=== PATIENT | male | born 1960 | race Caucasian/White ===

== ENCOUNTER 2020-02-06 05:38 | Emergency (ER) | payer OTHER ==
[~2020-02-06] VITALS: Ht 177.8 cm; Wt 82.0 kg
[2020-02-06] MEDS ORDERED: ACETAMINOPHEN 325MG TABLET PO ONE (06:30)
[2020-02-06] MEDS ORDERED: ASPIRIN 81MG TABLET PO ONE (06:30)
[2020-02-06 06:33] LABS: BASOPHILS % 0.6 % (0.0-2.0); EOSINOPHILS % 0.2 % (0.0-5.0); HEMATOCRIT. 43.9 % (42.0-52.0); HEMOGLOBIN. 14.9 g/dL (14.0-18.0); LYMPHOCYTES % 16.5 % (20.0-50.0); MEAN CORPUSCULAR HEMOGLOBIN 28.7 pg (28.0-32.0); MEAN CORPUSCULAR VOLUME 84.7 fL (80.0-94.0); MEAN PLATELET VOLUME 8.9 fl (7.4-10.4); MONOCYTES % 6.3 % (2.0-8.0); NEUTROPHILS % 76.4 % (40.0-76.0); PLATELET 219 x1000/uL (130-400); RED BLOOD CELL COUNT 5.18 mill/uL (4.7-6.1); RED CELL DISTRIBUTION WIDTH 20.1 % (11.6-14.6)
[2020-02-06 06:35] LABS: CHLORIDE 101 mEq/L (98-107)
[2020-02-06] MEDS ORDERED: KETOROLAC 15MG/ML VIAL IV ONE (09:30)
[2020-02-06] MEDS ORDERED: ONDANSETRON HCL 4MG/2ML INJ IV ONE (10:00)
[2020-02-06 15:57] LABS: *AMPHETAMINES SCREEN URINE PRESUMTIVE POSITIVE (NEGATIVE); *BARBITURATES SCREEN URINE NEGATIVE (NEGATIVE); *BENZODIAZEPINES SCREEN URINE NEGATIVE (NEGATIVE)
[2020-02-06 15:58] LABS: *COCAINE SCREEN URINE NEGATIVE (NEGATIVE); CANNABINOID URINE SCREEN NEGATIVE (NEGATIVE); METHADONE URINE SCREEN NEGATIVE (NEGATIVE); OPIATES URINE SCREEN NEGATIVE (NEGATIVE); PHENCYCLIDINE URINE SCREEN NEGATIVE (NEGATIVE)
[2020-02-06] MEDS ORDERED: CLONIDINE 0.2MG TABLET PO ONE (20:30)
[2020-02-07] MEDS ORDERED: ACETAMINOPHEN 325MG TABLET PO ONE (12:15)
[2020-02-08] MEDS ORDERED: GABAPENTIN 100MG CAPSULE PO ONE (10:15)
[2020-02-08] MEDS ORDERED: ACETAMINOPHEN 325MG TABLET PO ONE (15:00)
[2020-02-08] MEDS: GABAPENTIN 300MG CAPSULE PO SCH (18:09)
[2020-02-09] MEDS: GABAPENTIN 300MG CAPSULE PO SCH ×4 (05:28→14:33)
[2020-02-09] MEDS ORDERED: ACETAMINOPHEN 325MG TABLET PO ONE ×2 (11:00→11:36)
[2020-02-09 14:45] VITALS: BP 125/88
== END 2020-02-09 15:05 ==
LOC: ER 05:38
DX: R07.89 Other chest pain (principal); R45.851 Suicidal ideations; F14.10 Cocaine abuse, uncomplicated; F15.10 Other stimulant abuse, uncomplicated; I10 Essential (primary) hypertension; M54.30 Sciatica, unspecified side; G62.9 Polyneuropathy, unspecified; Z20.828 Contact with and (suspected) exposure to other viral communicable diseases
CPT/HCPCS: 36415; 71045; 80053; 80305; 83880; 84484; 85025; 85379; 87426; 87635; 93005; 96374; 96375; 99285; J1885; J2405; Z7610